=== PATIENT | male | born 1940 | race Caucasian/White ===

== ENCOUNTER 2019-09-16 06:22 | Day surgery (SDC) | payer MEDICARE, OTHER ==
--- NOTE | 2019-09-10 14:44 | HP ---
DATE OF SURGERY: 09/16/2019 HISTORY OF PRESENT ILLNESS: The patient is a 79 year-old male who presented to the office with complaints of increasing epigastric pain. He also has a history of colon polyps. He denies any sort of bowel symptoms. He has been taking Probiotic for his bowel regimen. He has been taking proton pump inhibitor therapy for epigastric pain despite therapy he complains of increasing epigastric pain. PAST MEDICAL HISTORY: High blood pressure. Diabetes. Hyperlipidemia. Restless leg. Neuropathy. Acid reflux. Benign prostatic hypertrophy. ALLERGIES: NONE. MEDICATIONS: Metoprolol. Glipizide. Pravastatin. Lisinopril/hydrochlorothiazide. Ropinirole. Gabapentin. Pantoprazole. Tamsulosin. FAMILY HISTORY: Negative. SOCIAL HISTORY: Negative. REVIEW OF SYSTEMS: CONSTITUTIONAL: He denies fever or chills. CHEST: Denies shortness of breath or cough. CVS: Denies chest pain. ABDOMEN: Denies abdominal pain. Reports epigastric pain. Denies diarrhea, nausea, vomiting or rectal bleeding. : Denies dysuria, hematuria. EXTREMITIES: Denies Swelling. PHYSICAL EXAMINATION: GENERAL: No acute distress. HEENT: No jaundice. Moist oral mucosa. NECK: No JVD. CHEST: Nonlabored. No shortness of breath. ABDOMEN: Soft, nondistended, nontender to palpation. EXTREMITIES: No edema. INTEGUMENTARY: Warm, pink, no rash. NEUROLOGIC: Alert, awake, oriented. PSYCHIATRIC: Appropriate mood and affect. ASSESSMENT: Increasing epigastric pain and history of colon polyp. PLAN: EGD and colonoscopy with Dr. Enrique Wu. As dictated by Roxi Heller NP.
[2019-09-16] MEDS ORDERED: Lactated Ringers 1,000 ML IV SCH (07:00)
[2019-09-16] MEDS ORDERED: DIPRIVAN 200 MG/20 ML IV ONE (08:34)
[2019-09-16] MEDS ORDERED: Ephedrine Sulfate 50 MG/ML ONE (08:48)
[2019-09-16 10:50] VITALS: O2SAT 97
[2019-09-16 10:53] VITALS: BP 140/69; PULSE 65
--- NOTE | 2019-09-16 10:58 | OP ---
SURGERY DATE/TIME: 09/16/2019 0834 PREOPERATIVE DIAGNOSES: Follow up polyps. POSTOPERATIVE DIAGNOSIS: Severe internal hemorrhoids. No polyps. PROCEDURES: Colonoscopy complete to cecum. PREP SCORE: Okay but not excellent. WITHDRAWAL TIME: 6 minutes. SURGEON: Enrique Wu M.D. ANESTHESIA: MAC. COMPLICATIONS: None. CONDITION: Stable. FOLLOW UP: Anticipated follow up three years. INDICATION: The patient has history of polyps. DESCRIPTION OF PROCEDURE: Taken to endoscopy left lateral decubitus position. MAC sedation provided. Anal digital examination. Prostate satisfactory. Scope advanced. The prep was okay but not excellent. The scope advanced to the base of the cecum. Base of cecum normal. Ileocecal valve normal. Appendiceal orifice not visible. Ascending, hepatic, transverse, splenic, descending, sigmoid, rectum. Anus severe internal hemorrhoids. The patient tolerated the procedure satisfactory.
== END 2019-09-16 10:00 | disposition home or self-care (01) ==
LOC: SDC 06:22
PROVIDERS: ATTEND Surgery
DX: Z09 Encounter for follow-up examination after completed treatment for conditions other than malignant neoplasm (principal); Z86.010 Personal history of colon polyps; K64.8 Other hemorrhoids; R10.13 Epigastric pain; E11.9 Type 2 diabetes mellitus without complications; Z79.899 Other long term (current) drug therapy
CPT/HCPCS: 82962; 99100; J2704

== ENCOUNTER 2021-09-06 05:48 | Day surgery (SDC) | payer MEDICARE, OTHER ==
--- NOTE | 2021-08-30 08:52 | HP ---
DATE OF SURGERY: 09/06/2021 HISTORY OF PRESENT ILLNESS: The patient presents with complaints of epigastric pain and reflux. The patient is on some Pepcid and omeprazole. The patient states he has been waking up at night with some bad pain. It has been going on for about the past six months. It looks like the patient had EGD back in 2019. It looks like he had grade III gastroesophageal reflux disease at that time. The patient has stated he had a hiatal hernia repair in the past. PAST MEDICAL HISTORY: Gastroesophageal reflux disease, diabetes, hypertension, hyperlipidemia, restless leg, neuropathy, benign prostatic hypertrophy, coronary artery disease. PAST SURGICAL HISTORY: Hiatal hernia. Stents. ALLERGIES: NKDA. MEDICATIONS: Pantoprazole, glipizide, metoprolol, meclizine, ropinirole, gabapentin, amlodipine, tamsulosin, aspirin. FAMILY HISTORY: Heart disease. SOCIAL HISTORY: None reported. REVIEW OF SYSTEMS: CONSTITUTIONAL: Denies fever or chills. CHEST: Denies shortness of breath. CVS: Denies chest pain. ABDOMEN: Reports epigastric pain. Denies nausea, vomiting, diarrhea, constipation or rectal bleeding. PHYSICAL EXAMINATION: GENERAL: No acute distress. CHEST: Nonlabored. No shortness of breath. CVS: Regular rate and rhythm. ABDOMEN: Soft. IMPRESSION: History of reflux and gastroesophageal reflux disease, epigastric pain. PLAN: EGD with Dr. Enrique Wu. As dictated by Roxi Heller NP.
[2021-09-06] MEDS ORDERED: Lactated Ringers 1,000 ML IV SCH (06:30)
[2021-09-06] MEDS ORDERED: DIPRIVAN 200 MG/20 ML IV ONE (07:59)
[2021-09-06] MEDS ORDERED: Xylocaine-Mpf 2% 5 Ml Vial ONE (07:59)
[2021-09-06 08:40] VITALS: BP 146/79; PULSE 51; O2SAT 98
--- NOTE | 2021-09-06 10:45 | OP ---
SURGERY DATE/TIME: 09/06/2021 0802 PREOPERATIVE DIAGNOSIS: Follow up of persistent symptoms of gastroesophageal reflux disease, reflux, epigastric pain, heartburn, burping. POSTOPERATIVE DIAGNOSES: 1) Gastroesophageal reflux disease 3 over 4. The patient has two areas of gastric bezoar, one up in the fundus and one down by the antrum. They are a food bezoar. 2) No hiatal hernia. 3) Gastroparesis. PROCEDURE: EGD. SURGEON: Enrique Wu M.D. ANESTHESIA: MAC. COMPLICATIONS: None. CONDITION: Stable. INDICATION: A patient with persistent symptoms. DESCRIPTION OF PROCEDURE: Taken to endoscopy. Left lateral decubitus position. Pharyngoesophageal junction normal. Vocal cords normal. Esophagus normal. There were four vertical streaks of esophagitis grade III. There was a rim of esophagitis grade II. There was no hiatal hernia. There was a small food bolus in the fundus and then going down at the antrum there was a small food bolus. Pylorus satisfactory. Duodenal bulb normal. Second portion normal. The scope withdrawn looped upon itself. Hiatal area normal from below. IMPRESSION: The patient has a component of gastroparesis. He does have two small food boluses. PLAN: He is placed on Reglan 5 mg q.a.c. and h.s. for six weeks. I discussed with the the short term treatment of this probably will be helpful.
== END 2021-09-06 08:45 | disposition home or self-care (01) ==
LOC: SDC 05:48
PROVIDERS: ATTEND Surgery
DX: K21.9 Gastro-esophageal reflux disease without esophagitis (principal); K31.84 Gastroparesis; E11.43 Type 2 diabetes mellitus with diabetic autonomic (poly)neuropathy; T18.2XXA Foreign body in stomach, initial encounter
CPT/HCPCS: 82947; 99100; J2704

== ENCOUNTER 2025-02-23 17:03 | Emergency (ER) | payer MEDICARE, OTHER ==
[2025-02-23 17:23] VITALS: RESP 18; TEMP 99
[2025-02-23 18:32] LABS: Glucose, Urine Negative (Negative); Protein,Urine Dip 30 (Negative); WBC 51-100 /HPF (0-5)
[2025-02-23 19:17] VITALS: O2SAT 94
--- NOTE | 2025-02-23 19:46 | ERPHSYRPT ---
- History of Present Illness Time Seen by Provider: 02/23/25 19:56 Source: patient Exam Limitations: no limitations Patient Subjective Stated Complaint: Pt. states, "Last night I felt like I had to have a bowel movement and pee, when I tried I couldn't do either. I ended up getting a little urine out after I strained and strained, but I still feel like I need to pee and it has been this way all night and day." Triage Nursing Assessment: Pt. arrives to room in W/C, A&Ox3, Skin P/W/D, REsp. even unlabored, grimacing in discomfort but denies pain. Able to speak full sentences and move all four extremities. Physician History: Patient is an 84-year-old male history of coronary artery disease hyperlipidemia hypertension type 2 diabetes enlarged prostate presents to our ED for evaluation of dysuria. Patient believes he was experiencing urinary retention. Patient states he tried to urinate but can only trickle. Patient experiencing urgency. No chest pain or shortness of breath. No abdominal pain. No trauma no fever patient otherwise feels well. He voices no other complaints or concerns at this time. Portions of this note were created with voice recognition technology. There may be grammatical, spelling, punctuation or sound alike errors Timing/Duration: today Severity: moderate Modifying Factors: Improves With: nothing Associated Symptoms: denies symptoms Allergies/Adverse Reactions: No Known Drug Allergies Allergy (Unverified 09/06/21 06:22) Home Medications: Gabapentin [Neurontin] 400 mg PO DAILY 09/08/19 [History] Tamsulosin HCl 0.4 mg [Flomax 0.4 MG] 0.4 mg PO DAILY 09/08/19 [History] Amlodipine Besylate 5 mg [Norvasc 5 mg] 5 mg PO DAILY 09/06/21 [History] Gabapentin [Neurontin ] 100 mg PO BID 09/06/21 [History] Meclizine HCl 25 mg [Antivert 25 mg] 25 mg PO BID 09/06/21 [History] Metoprolol Succinate [Toprol Xl] 12.5 mg PO DAILY 09/06/21 [History] Ropinirole HCl 0.5 mg [Requip 0.5 MG] 0.5 mg PO TID 09/06/21 [History] Sucralfate 1 gm [Carafate 1 GM] 1 g PO ACHS 09/06/21 [History] glipiZIDE [Glipizide ER] 5 mg PO DAILY 09/06/21 [History] Hx Tetanus, Diphtheria Vaccination/Date Given: No Hx Influenza Vaccination/Date Given: No Hx Pneumococcal Vaccination/Date Given: Yes Travel Risk - International Travel Have you traveled outside of the country in past 3 weeks: No - Emerging Infectious Disease Are you exhibiting symptoms associated with any current EIDs: No - Review of Systems All Other Systems: Reviewed and Negative - Past Medical History Pertinent Past Medical History: Yes Neurological History: Peripheral Neuropathy ENT History: No Pertinent History Cardiac History: No Pertinent History, Coronary Artery Disease, High Cholesterol, Hypertension Respiratory History: No Pertinent History Endocrine Medical History: Diabetes Type II Musculoskeletal History: Arthritis GI Medical History: GERD, Polyps, Other History: No Pertinent History Psycho-Social History: No Pertinent History Male Reproductive Disorders: Prostate Problems - Past Surgical History Past Surgical History: Yes Neuro Surgical History: No Pertinent History Cardiac: Cardiac Stent Respiratory: No Pertinent History Gastrointestinal: No Pertinent History, Other Genitourinary: No Pertinent History Musculoskeletal: No Pertinent History Male Surgical History: No Pertinent History Other Surgical History: Hiatel hernia and redo r/t "pulled it too tight and i couldn't even swallow my own saliva". - Social History Smoking Status: Never smoker Exposure to second hand smoke: No Drug Use: none - Social Determinants of Health Will the patient participate in the screening: Declined to provide - Nursing Vital Signs Nursing Vital Signs: Initial Vital Signs Temperature 99.0 F 02/23/25 17:03 Pulse Rate 79 02/23/25 17:03 Respiratory Rate 18 02/23/25 17:03 Blood Pressure 166/91 02/23/25 17:03 O2 Sat by Pulse Oximetry 97 02/23/25 17:03 Pain Scale Pain Intensity 0 - Physical Exam General Appearance: no apparent distress, alert Eye Exam: PERRL/EOMI, eyes nml inspection Ears, Nose, Throat Exam: normal ENT inspection, moist mucous membranes Neck Exam: normal inspection, full range of motion Respiratory Exam: normal breath sounds, lungs clear, airway intact, No respiratory distress Cardiovascular Exam: regular rate/rhythm, normal heart sounds, normal peripheral pulses Gastrointestinal/Abdomen Exam: soft, normal bowel sounds, other (No CVA tenderness), No tenderness, No mass Back Exam: normal inspection, normal range of motion, No CVA tenderness, No vertebral tenderness Extremity Exam: normal inspection, normal range of motion, pelvis stable Neurologic Exam: alert, oriented x 3, cooperative, normal mood/affect, sensation nml, No motor deficits Skin Exam: normal color, warm, dry, No rash Lymphatic Exam: No adenopathy SpO2 Interpretation: normal SpO2: 94 O2 Delivery: Room Air - Course Nursing assessment & vital signs reviewed: Yes Ordered Tests: Active Orders 24 hr Category Date Time Status CULTURE,URINE Stat Lab 02/23/25 18:15 Received UA W/RFX UR CULTURE Stat Lab 02/23/25 18:15 Completed Medication Summary Discontinued Medications Generic Name Dose Route Start Last Admin Trade Name Freq PRN Reason Stop Dose Admin Ciprofloxacin 500 mg 02/23/25 19:43 02/23/25 19:48 Ciprofloxacin 500 Mg Tablet PO 02/23/25 19:44 500 mg ONCE STA Administration Ciprofloxacin Confirm 02/23/25 19:47 Ciprofloxacin 500 Mg Tablet Administered 02/23/25 19:48 Dose 500 mg .ROUTE .[facility] Lab/Rad Data: Laboratory Results 02/23/25 Range/Units 18:15 Urine Color Yellow (Yellow) Urine Appearance Cloudy A (Clear) Urine pH 6.0 (4.6-8.0) Ur Specific [place] 1.025 (1.005-1.030) Urine Protein 30 (Negative) Urine Glucose (UA) Negative (Negative) mg/dL Urine Ketones 15 A (Negative) Urine Blood Moderate A (Negative) Urine Nitrite Negative (Negative) Urine Bilirubin Negative (Negative) Urine Urobilinogen 0.2 (0.2) mg/dL Ur Leukocyte Esterase Moderate A (Negative) U Hyaline Cast (Auto) NONE SEEN (0-2) /LPF Urine Microscopic RBC 6-10 A (0-5) /HPF Urine Microscopic WBC 51-100 A (0-5) /HPF Ur Epithelial Cells None Seen (None Seen) /HPF Urine Bacteria Many A (None Seen) /HPF Urine Culture Reflexed YES (NO) - Progress Progress: improved Progress Note: 02/23/25 20:02 Patient is an 84-year-old male history of coronary artery disease hyperlipidemia hypertension type 2 diabetes enlarged prostate presents to our ED for evaluation of dysuria. Physical exam essentially nonremarkable. Aguiar catheter placed. 150 cc clear urine obtained. UA reveals a significant urinary tract infection. Patient received an oral dose of ciprofloxacin. A prescription for the same provided to patient. Patient currently asymptomatic. He feels well. Aguiar catheter removed. We will discharge patient home. Patient agrees to follow-up with primary care doctor within 48 hours for reevaluation. He voices no other complaints or concerns at this time. History obtained from patient. Portions of this note were created with voice recognition technology. There may be grammatical, spelling, punctuation or sound alike errors Differential diagnoses include cystitis, urinary tract infection, prostatitis, ureterolithiasis, urinary retention Patient declined pain medication. Complexity of problems addressed is moderate acute complicated. No critical care time. Complexity of data reviewed and analyzed is moderate. Test ordered chest reviewed results analyzed and correlated clinically with history and physical exam. Risk of complication and or risk of morbidity/mortality of patient management is moderate. A prescription for ciprofloxacin forwarded to patient's pharmacy. Vital stable. Time spent in discharge patient is approximately 15 minutes. Plan of care established for shared decision making. No social determinants of health present to impede follow-up. Portions of this note were created with voice recognition technology. There may be grammatical, spelling, punctuation or sound alike errors Counseled pt/family regarding: lab results, diagnosis, need for follow-up - Departure Departure Disposition: Home Clinical Impression: UTI (urinary tract infection) Condition: Stable Critical Care Time: No Referrals: DOCTOR,NO FAMILY [Primary Care Provider, UNKNOWN] - Follow up/PCP as directed ROSA HAYWARD MD [ACTIVE STAFF, FAMILY PRACTICE] - Follow up/PCP as directed Instructions: Urinary tract infection in adults - ED discharge instructions Additional Instructions: Discharge/Care Plan ALEXYRAD CAMPBELL was seen on 02/23/25 in the Emergency Room. The patient was counseled regarding Diagnosis,Lab results, Imaging studies, need for follow up and when to return to the Emergency Room. Prescriptions given: Discharge Note I have spoken with the patient and/or caregivers. I have explained the patient's condition, diagnosis and treatment plan based on the information available to me at this time. I have answered the patient's and/or caregiver's questions and addressed any concerns. The patient and/or caregivers have as good understanding of the patient's diagnosis, condition and treatment plan as can be expected at this point. The vital signs have been stable. The patient's condition is stable and appropriate for discharge from the emergency department. The patient will pursue further outpatient evaluation with the primary care physician or other designated or consulting physician as outlined in the discharge instructions. The patient and/or caregivers are agreeable to this plan of care and follow-up instructions have been explained in detail. The patient and/or caregivers have received these instruction. The patient/and or caregivers are aware that any significant change in condition or worsening of symptoms should prompt an immediate return to this or the closest emergency department or call 911. Prescriptions: Ciprofloxacin [Cipro 500 MG] 500 mg PO BID 7 Days #14 tablet
[2025-02-23] MEDS ORDERED: Cipro 500 MG ONE (19:47)
[2025-02-23] MEDS: Cipro 500 MG PO STA (19:48)
[2025-02-23 20:10] VITALS: BP 152/92; PULSE 84
== END 2025-02-23 20:02 | disposition home or self-care (01) ==
LOC: ED 17:03
DX: N39.0 Urinary tract infection, site not specified (principal); R30.0 Dysuria; R39.15 Urgency of urination; I10 Essential (primary) hypertension; E11.42 Type 2 diabetes mellitus with diabetic polyneuropathy; Z79.84 Long term (current) use of oral hypoglycemic drugs; Z79.899 Other long term (current) drug therapy